=== PATIENT | male | born 1970 | race Caucasian/White ===

== ENCOUNTER 2016-09-01 18:14 | Observation (INO) | payer MEDICAID, OTHER ==
[2016-09-01] MEDS ORDERED: Prochlorperazine 5 mg/mL 2mL Vial IVP STA (19:08)
[2016-09-01] MEDS ORDERED: NITROGLYCERIN SPRAY 4.9 GM SL STA (19:16)
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
[2016-09-01] MEDS ORDERED: Prochlorperazine 5 mg/mL 2mL Vial ONE (19:28)
[2016-09-01] MEDS ORDERED: NITROGLYCERIN SPRAY 4.9 GM SL ONE (19:33)
[2016-09-01 20:26] LABS: % BASOPHILS 0.9 % (0.0-2.0); % EOSINOPHILS 4.3 % (0.0-5.0); % LYMPHOCYTES 26.9 % (20.0-50.0); % MONOCYTES 7.3 % (2.0-10.0); % NEUTROPHILS 60.6 % (40.0-80.0); HEMATOCRIT 41.5 % (39.0-49.0); HEMOGLOBIN 14.3 gm/dL (13.2-17.3); MEAN CELL VOLUME 94.6 fl (80-99); MEAN CORPUSCULAR HEMOGLOBIN 32.6 pg (26.0-30.0); MEAN CORPUSCULAR HGB CONC 34.4 pg (28.0-36.0); MEAN PLATELET VOLUME 8.8 fl; NEUTROPHILE ABSOLUTE 4.8 Th/cmm (1.8-8.0); PLATELET COUNT 194 Th/cmm (150-400); RED BLOOD COUNT 4.38 Mil/cmm (4.30-5.70); RED CELL DISTRIBUTION WIDTH 12.8 % (11.5-20.0); WHITE BLOOD COUNT 7.9 Th/cmm (4.8-10.8)
[2016-09-01 20:46] LABS: ANION GAP 9.9 (7.0-16.0); BUN - UREA NITROGEN 15 mg/dL (7-25); CARBON DIOXIDE 22.8 mEq/L (21.0-31.0); CHLORIDE 108 mEq/L (98-107); CREATININE - SERUM 0.4 mg/dL (0.7-1.3); GLUCOSE 112 mg/dL (70-105); POTASSIUM SERUM 3.7 mEq/L (3.5-5.1); SODIUM SERUM 137 mEq/L (136-145)
[2016-09-01 20:47] LABS: AMPHETAMINE URINE NEGATIVE (NEGATIVE); BARBITURATES URINE NEGATIVE (NEGATIVE)
[2016-09-01 20:47] LABS: ALB/GLOB RATIO 1.2 (1.0-1.8); ALKALINE PHOSPHATASE 83 U/L (34-104); BILIRUBIN,TOTAL 0.4 mg/dL (0.3-1.0); BUN/CREATININE RATIO 37.5; CALCIUM SERUM 9.3 mg/dL (8.6-10.3); SGOT 41 U/L (13-39); SGPT/ALT 38 U/L (7-52)
[2016-09-01] MEDS ORDERED: Sodium Chloride 0.9% 1,000 ML IV SCH (23:03)
[2016-09-02 06:03] LABS: % BASOPHILS 0.4 % (0.0-2.0); % EOSINOPHILS 2.6 % (0.0-5.0); % LYMPHOCYTES 15.4 % (20.0-50.0); % MONOCYTES 9.2 % (2.0-10.0); % NEUTROPHILS 72.4 % (40.0-80.0); HEMATOCRIT 40.4 % (39.0-49.0); HEMOGLOBIN 13.9 gm/dL (13.2-17.3); MEAN CELL VOLUME 95.5 fl (80-99); MEAN CORPUSCULAR HEMOGLOBIN 32.8 pg (26.0-30.0); MEAN CORPUSCULAR HGB CONC 34.4 pg (28.0-36.0); MEAN PLATELET VOLUME 9.8 fl; NEUTROPHILE ABSOLUTE 4.6 Th/cmm (1.8-8.0); PLATELET COUNT 185 Th/cmm (150-400); RED BLOOD COUNT 4.23 Mil/cmm (4.30-5.70); RED CELL DISTRIBUTION WIDTH 13.2 % (11.5-20.0); WHITE BLOOD COUNT 6.4 Th/cmm (4.8-10.8)
[2016-09-02 06:20] LABS: ALB/GLOB RATIO 1.2 (1.0-1.8); ALKALINE PHOSPHATASE 73 U/L (34-104); ANION GAP 5.2 (7.0-16.0); BILIRUBIN,TOTAL 0.6 mg/dL (0.3-1.0); BUN - UREA NITROGEN 13 mg/dL (7-25); BUN/CREATININE RATIO 32.5; CALCIUM SERUM 9.2 mg/dL (8.6-10.3); CARBON DIOXIDE 23.9 mEq/L (21.0-31.0); CHLORIDE 111 mEq/L (98-107); CREATININE - SERUM 0.4 mg/dL (0.7-1.3); GLUCOSE 101 mg/dL (70-105); POTASSIUM SERUM 4.1 mEq/L (3.5-5.1); SGOT 31 U/L (13-39); SGPT/ALT 34 U/L (7-52); SODIUM SERUM 136 mEq/L (136-145)
[2016-09-02 06:31] LABS: URINE BILIRUBIN NEGATIVE (NEGATIVE); URINE BLOOD TRACE (NEGATIVE); URINE COLOR YELLOW; URINE GLUCOSE (UA) NEGATIVE (NEGATIVE); URINE KETONE NEGATIVE (NEGATIVE); URINE PH 6.5; URINE PROTEIN NEGATIVE (NEGATIVE); URINE UROBILINOGEN 0.2 E.U./dL (0.2 - 1.0)
[2016-09-02 06:59] LABS: URINE BACTERIA MODERATE /hpf (NONE SEEN); URINE EPITHELIAL CELLS FEW /lpf (FEW); URINE RBC 0-2 /hpf (0-5); URINE WBC 25-50 /hpf (0-5)
--- NOTE | 2016-09-02 08:23 | General Progress Note ---
Subjective - Review of Systems Service Date: 09/02/16 Subjective: I need pain medication Objective - Results Result Diagrams: 09/02/16 05:15 09/02/16 05:15 Recent Labs: Laboratory Last Values WBC 6.4 Th/cmm (4.8-10.8) 09/02/16 05:15 RBC 4.23 Mil/cmm (4.30-5.70) L 09/02/16 05:15 Hgb 13.9 gm/dL (13.2-17.3) 09/02/16 05:15 Hct 40.4 % (39.0-49.0) 09/02/16 05:15 MCV 95.5 fl (80-99) 09/02/16 05:15 MCH 32.8 pg (26.0-30.0) H 09/02/16 05:15 MCHC Differential 34.4 pg (28.0-36.0) 09/02/16 05:15 RDW 13.2 % (11.5-20.0) 09/02/16 05:15 Plt Count 185 Th/cmm (150-400) 09/02/16 05:15 MPV 9.8 fl 09/02/16 05:15 Neutrophils % 72.4 % (40.0-80.0) 09/02/16 05:15 Lymphocytes % 15.4 % (20.0-50.0) L 09/02/16 05:15 Monocytes % 9.2 % (2.0-10.0) 09/02/16 05:15 Eosinophils % 2.6 % (0.0-5.0) 09/02/16 05:15 Basophils % 0.4 % (0.0-2.0) 09/02/16 05:15 Sodium 136 mEq/L (136-145) 09/02/16 05:15 Potassium 4.1 mEq/L (3.5-5.1) 09/02/16 05:15 Chloride 111 mEq/L (98-107) H 09/02/16 05:15 Carbon Dioxide 23.9 mEq/L (21.0-31.0) 09/02/16 05:15 Anion Gap 5.2 (7.0-16.0) L 09/02/16 05:15 BUN 13 mg/dL (7-25) 09/02/16 05:15 Creatinine 0.4 mg/dL (0.7-1.3) L 09/02/16 05:15 Est GFR ( Amer) > 60.0 ml/min (>90) 09/02/16 05:15 Est GFR (Non-Af Amer) > 60.0 ml/min 09/02/16 05:15 BUN/Creatinine Ratio 32.5 09/02/16 05:15 Glucose 101 mg/dL (70-105) 09/02/16 05:15 Calcium 9.2 mg/dL (8.6-10.3) 09/02/16 05:15 Total Bilirubin 0.6 mg/dL (0.3-1.0) 09/02/16 05:15 AST 31 U/L (13-39) 09/02/16 05:15 ALT 34 U/L (7-52) 09/02/16 05:15 Alkaline Phosphatase 73 U/L (34-104) 09/02/16 05:15 Troponin I < 0.01 ng/mL (0.01-0.05) L 09/02/16 05:15 B-Natriuretic Peptide 27.5 pg/mL (5.0-100.0) 09/01/16 20:19 Total Protein 7.1 gm/dL (6.0-8.3) 09/02/16 05:15 Albumin 3.9 gm/dL (4.2-5.5) L 09/02/16 05:15 Globulin 3.2 gm/dL 09/02/16 05:15 Albumin/Globulin Ratio 1.2 (1.0-1.8) 09/02/16 05:15 TSH 0.85 uIU/ml (0.34-5.60) 09/02/16 05:15 Urine Source CLEAN C 09/02/16 06:10 Urine Color YELLOW 09/02/16 06:10 Urine Clarity SL. CLOUDY (CLEAR) 09/02/16 06:10 Urine pH 6.5 09/02/16 06:10 Ur Specific [place] 1.025 (1.005-1.030) 09/02/16 06:10 Urine Protein NEGATIVE mg/dL (NEGATIVE) 09/02/16 06:10 Urine Glucose (UA) NEGATIVE mg/dL (NEGATIVE) 09/02/16 06:10 Urine Ketones NEGATIVE mg/dL (NEGATIVE) 09/02/16 06:10 Urine Blood TRACE (NEGATIVE) 09/02/16 06:10 Urine Nitrate POSITIVE (NEGATIVE) H 09/02/16 06:10 Urine Bilirubin NEGATIVE (NEGATIVE) 09/02/16 06:10 Urine Urobilinogen 0.2 E.U./dL (0.2 - 1.0) 09/02/16 06:10 Ur Leukocyte Esterase SMALL (NEGATIVE) H 09/02/16 06:10 Urine RBC 0-2 /hpf (0-5) H 09/02/16 06:10 Urine WBC 25-50 /hpf (0-5) H 09/02/16 06:10 Ur Epithelial Cells FEW /lpf (FEW) 09/02/16 06:10 Urine Bacteria MODERATE /hpf (NONE SEEN) 09/02/16 06:10 Urine Opiates Screen NEGATIVE (NEGATIVE) 09/01/16 20:00 Ur Barbiturates Screen NEGATIVE (NEGATIVE) 09/01/16 20:00 Ur Phencyclidine Scrn NEGATIVE (NEGATIVE) 09/01/16 20:00 Amphetamines Screen NEGATIVE (NEGATIVE) 09/01/16 20:00 U Methamphetamines Scrn POSITIVE (NEGATIVE) H 09/01/16 20:00 U Benzodiazepines Scrn NEGATIVE (NEGATIVE) 09/01/16 20:00 U Cocaine Metab Screen NEGATIVE (NEGATIVE) 09/01/16 20:00 U Cannabinoids Screen NEGATIVE (NEGATIVE) 09/01/16 20:00 Ethyl Alcohol 37 mg/dL (0-10) H 09/01/16 20:19 - Physical Exam Vitals and I&O: Vital Signs Temp 98.1 F 09/02/16 04:00 Pulse 94 09/02/16 04:00 Resp 18 09/02/16 04:00 BP 123/77 09/02/16 04:00 Pulse Ox 98 09/02/16 04:00 Active Medications: Current Medications Acetaminophen (Tylenol) 650 mg PO Q6H PRN PRN Reason: Pain or Fever >101 Stop: 10/31/16 23:04 Folic Acid (Folate) 1 mg PO DAILY [facility] Stop: 11/01/16 08:59 Sodium Chloride (Nacl 0.9%) 1,000 mls @ 75 mls/hr IV .[id number] SHAMEKA Stop: 10/31/16 23:02 Lorazepam (Ativan) 1 mg IVP Q12HR PRN; Protocol PRN Reason: Agitation Stop: 11/01/16 08:59 Ondansetron HCl (Zofran) 4 mg IV Q6H PRN PRN Reason: Nausea / Vomiting Stop: 10/31/16 23:05 Thiamine HCl (Vitamin B1) 100 mg PO DAILY [place] Stop: 11/01/16 08:59 General: Alert, Oriented x3, Cooperative, No acute distress HEENT: Atraumatic Neck: Supple Cardiovascular: Regular rate Lungs: Clear to auscultation Abdomen: Bowel sounds, Soft Extremities: Other (Paraplegic) Neurological: Other (Non ambulatory) Skin: Other (Warm and dry) Psych/Mental Status: Mental status NL Assessment/Plan - Assessment Assessment: Patient is awake alert, calm, requesting Paron. Troponins are normal. - Plan Plan: Due that chest pain is related to the "cage" not to the heart patient will be discharge.
--- NOTE | 2016-09-02 10:36 | Diagnostic Imaging Report ---
CT scan of the brain without intravenous contrast HISTORY: Stroke, CVA Total DLP equals 668 CTDI equals 36.7 Axial sections were obtained from the base of the skull to the vertex. With a normal ventricular system size. There is enlargement of cerebral sulci and subarachnoid cisterns reflecting atrophy. No acute parenchymal abnormalities. No intracerebral hemorrhage. No mass effect or shift of midline structures. No extra-axial masses or abnormal fluid collections. IMPRESSION: 1. No acute abnormalities 2. Findings consistent with a mild to moderate degree of cerebral atrophy somewhat remarkable in view of the patient's age.
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
--- NOTE | 2016-09-06 22:37 | Admit Criteria Form ---
Admit Criteria Forms - Admit Criteria Diagnosis: TELEMETRY CARE Telemetry Admission Guidelines (Place 'X' for any and all applicable criteria): Admission to telemetry [A] may be indicated for ANY ONE of the following(1)(2)(3 )(4)(5): [X]I. Cardiac disease, including ANY ONE of the following (9)(10)(11)(12)(13 ): [ ]a) Postacute NM [ ]b) Low-risk patients with ST-segment elevation NM who have undergone successful percutaneous coronary intervention [X]c) Unstable angina [ ]d) Suspected NM (until it is ruled out) [ ]e) Post cardiac surgery (first 48 to 72 hours unless complications occur) [ ]f) Acute arrhythmias (including significant tachycardia or bradycardia) [B] [ ]g) Firing of an implantable cardioverter defibrillator [C] [ ]h) Suspected pacemaker or implantable cardioverter defibrillator malfunction (10) [ ]i) New administration or adjustment of an antiarrhythmic drug [D ] [ ]j) Child admitted for acute congestive heart failure [ ]j) Long QT syndrome [ ]k) Advanced heart block (eg, second-degree Mobitz type II, third- degree heart block) [ ]l) Acute myocarditis or pericarditis [ ]m) Short-term (ambulatory or inpatient) monitoring after a cardiac procedure as indicated by ANY ONE of the following [E]: [ ]i) Electrophysiologic studies [ ]ii) Percutaneous coronary intervention with stent placement [ ]iii) Pacemaker placement with cardiac conduction defect [ ]iv) Implantable cardiac defibrillator placement [ ]II. Drug overdose or poisoning with substance that causes arrhythmias or QT prolongation (eg, phenothiazines, sympathomimetic agents, cyclic antidepressants, digitalis, antiarrhythmic drugs)(15) [ ]III. Short-term (ambulatory or inpatient) monitoring after therapeutic or diagnostic procedure requiring conscious sedation or anesthesia (eg, endoscopy, elective cardioversion) [X]IV. Acute cerebrovascular even[F](18) [ ]V. Massive blood transfusion (eg, at least 10 units of packed red blood cells in 24 hours) [ ]. Variceal bleeding after endoscopy, sclerotherapy, or IV vasopressin [ ]VII. Uncorrected electrolyte abnormalities associated with an increased risk of dangerous arrhythmia [G]; examples include [ ]a) Hyperkalemia with attributable ECG changes [ ]b) Potassium greater than 6.5 mmol/L (mEq/L) in a patient without history of chronic renal disease [ ]c) Prolonged QT attributed to hypokalemia, hypomagnesemia, or hypocalcemia [ ]VIII.Unexplained syncope or other neurologic event suspected of being due to arrhythmia due to a finding that increases risk; examples include(19)(20)(21): [ ]a) High-risk ECG findings (eg, bifascicular block, bradycardia, abnormal QT interval, ventricular pre- excitation) [ ]b) History of previous syncope due to arrhythmia [ ]c) Abnormal ventricular function (eg, reduced ejection fraction ) [ ]d) Exertional or supine syncope [ ]e) Concerning syncope characteristics (eg, sudden loss of consciousness without prodrome) [ ]f) Family history of sudden [ ]g) Use of arrhythmogenic medication [ ]h) Suspected cardiac ischemia [ ]i) Known channelopathy (eg, long QT syndrome, Brugada syndrome, or catecholaminergic paroxysmal ventricular tachycardia) [ ]j) Known structural heart disease (eg, hypertrophic cardiomyopathy , severe valvular disease) [ ]k) Palpitations preceding syncope The original [employer] content created by [employer] has been revised. The portions of the content which have been revised are identified through the use of italic text or in bold, and [email or web address] has neither reviewed nor approved the modified material. All other unmodified content is copyright [employer]. Please see references footnoted in the original [employer] edition 2016 Admit Criteria Met?: Yes
== END 2016-09-02 11:20 | disposition home or self-care (01) ==
LOC: ER 18:14 → TELE 22:45
PROVIDERS: ADMIT General Practice; ATTEND General Practice
DX: G82.20 Paraplegia, unspecified (principal); R07.89 Other chest pain; F10.20 Alcohol dependence, uncomplicated
CPT/HCPCS: 36415-UA; 70450-TC; 71010-TC; 80053-TC; 80320-TC; 81001-TC; 83880-TC; 84443-TC; 84484-TC; 85025-TC; 87086-90; 93005; 96374; G0378; J0780; J7030